=== PATIENT | male | born 1940 | race Caucasian/White ===

== ENCOUNTER 2018-07-05 08:46 | Day surgery (SDC) | payer MEDICARE, BC ==
[2018-07-03 11:52] LABS: BASOPHILS % (AUTO) 0.7 % (0-1); EOSINOPHILS # (AUTO) 0.3 X10'3 (0-0.9); EOSINOPHILS % (AUTO) 4.1 % (0-6); HEMATOCRIT 47.4 % (42.0-52.0); HEMOGLOBIN 15.5 g/dl (14.0-17.9); LYMPHOCYTES # (AUTO) 1.4 X10'3 (1.1-4.8); LYMPHOCYTES % (AUTO) 21.2 % (21-51); MEAN CORPUSCULAR HEMOGLOBIN 28.7 PG (27.0-31.0); MEAN CORPUSCULAR HGB CONC 32.8 g/dL (33.0-36.5); MEAN CORPUSCULAR VOLUME 87.4 FL (78-98); MEAN PLATELET VOLUME 7.3 FL (7.4-10.4); MONOCYTES # (AUTO) 0.7 X10'3 (0-0.9); MONOCYTES % (AUTO) 10.9 % (2-12); NEUTROPHILS % (AUTO) 63.1 % (42-75); PLATELET COUNT 215 X10'3 (140-440); RED BLOOD COUNT 5.42 X10'6 (4.70-6.10); RED CELL DISTRIBUTION WIDTH 15.9 % (11.5-14.5); WHITE BLOOD COUNT 6.4 X10'3 (4.5-11.0)
[2018-07-03 12:00] LABS: ANION GAP 8 (8-16); BLOOD UREA NITROGEN 18 MG/DL (7-18); BUN/CREATININE RATIO 16.8 (5.4-32.0); CALCIUM 8.8 MG/DL (8.5-10.1); CHLORIDE 101 MMOL/L (99-107); CREATININE 1.07 MG/DL (0.60-1.10); GLUCOSE 86 MG/DL (70-104); SODIUM 138 MMOL/L (135-145); TOTAL CARBON DIOXIDE 29.5 MMOL/L (24-32); eGFR 67 ML/MIN
[2018-07-03 12:05] LABS: PARTIAL THROMBOPLASTIN TIME 27 SECONDS (22-32); PROTHROMBIN TIME 10.3 SECONDS (9.0-12.0)
[2018-07-05] VITALS (9 sets, daily range): BP systolic 104–134; BP diastolic 70–97
[~2018-07-05] VITALS: Ht 177.8 cm; Wt 108.3 kg
[2018-07-05] MEDS ORDERED: LORazepam 0.5 MG tablet PO PRN (09:05)
[2018-07-05] MEDS ORDERED: diphenhydrAMINE 25mg capsule PO PRN (09:05)
[2018-07-05] MEDS ORDERED: normal saline 1000ml 1,000 ML IV SCH (09:05)
[2018-07-05] MEDS ORDERED: HYDR25TA4 PO (10:05)
[2018-07-05] MEDS ORDERED: ASPI81TA52 PO (10:18)
[2018-07-05] MEDS ORDERED: CARV3.12 PO (10:19)
[2018-07-05] MEDS ORDERED: verapamil 2.5 mg/ml inj IV ONE (11:47)
[2018-07-05] MEDS ORDERED: heparin 1,000unit/ml 10ml vial 10 ML ONE ×2 (11:47→12:34)
[2018-07-05] MEDS ORDERED: LIDOcaine 1% (10mg/ml)w/preservative injection 20ml MDV ONE (11:47)
[2018-07-05] MEDS ORDERED: iohexol 350MG/ML 100ml bottle IV ONE ×2 (11:48→12:38)
[2018-07-05] MEDS ORDERED: nitroGLYCERIN-Tridil 50MG/D5W 250 ML IV ONE (11:48)
[2018-07-05] MEDS ORDERED: midazolam 2 mg/2 ml injection ONE ×3 (11:51→12:34)
[2018-07-05] MEDS ORDERED: fentaNYL/PF 50MCG/1 ML 2ML syringe ONE (11:51)
[2018-07-05] MEDS ORDERED: ticagrelor 90mg tablet ONE (12:49)
[2018-07-05] MEDS ORDERED: HYDROcodone/acetaminophen 10/325mg tab PO PRN (13:30)
[2018-07-05] MEDS ORDERED: proCHLORperazine 10 MG/2 ml inj IV PRN (13:30)
[2018-07-05] MEDS ORDERED: nitroGLYCERIN 0.4mg SUBLingual tab SL PRN (13:30)
[2018-07-05] MEDS ORDERED: ondansetron/PF 4mg/2ml inj IV PRN (13:30)
[2018-07-05] MEDS ORDERED: OXAZEpam 15mg capsule PO PRN (13:30)
[2018-07-05] MEDS ORDERED: HYDROcodone/acetaminophen 5mg/325mg tablet PO PRN (13:30)
== END 2018-07-05 16:10 | disposition home or self-care (01) ==
LOC: SSTAY O 08:46
PROVIDERS: ATTEND Internal Medicine Interventional Cardiology
DX: I25.119 Atherosclerotic heart disease of native coronary artery with unspecified angina pectoris (principal); I25.82 Chronic total occlusion of coronary artery; I10 Essential (primary) hypertension; I35.0 Nonrheumatic aortic (valve) stenosis; E78.2 Mixed hyperlipidemia; Z79.82 Long term (current) use of aspirin; Z79.899 Other long term (current) drug therapy
CPT/HCPCS: 36415; 80048; 85025; 85610; 85730; 93005; 93458; 99152; 99153; A6257; C1874; C9607; J1644; J2001; J2250; J3010; J7030; Q0163; Q9967; A4620; C1725; C1769; J3490

== ENCOUNTER 2019-07-22 10:28 | Day surgery (SDC) | payer MEDICARE, BC ==
[2019-07-18 16:15] LABS: BASOPHILS # (AUTO) 0.1 X10'3 (0-0.2); BASOPHILS % (AUTO) 1.3 % (0-1); EOSINOPHILS # (AUTO) 0.4 X10'3 (0-0.9); EOSINOPHILS % (AUTO) 6.7 % (0-6); HEMATOCRIT 43.2 % (42.0-52.0); HEMOGLOBIN 14.7 g/dl (14.0-17.9); LYMPHOCYTES # (AUTO) 1.1 X10'3 (1.1-4.8); LYMPHOCYTES % (AUTO) 17.1 % (21-51); MEAN CORPUSCULAR HEMOGLOBIN 30.7 PG (27.0-31.0); MEAN CORPUSCULAR VOLUME 90.5 FL (78-98); MEAN PLATELET VOLUME 7.3 FL (7.4-10.4); MONOCYTES # (AUTO) 0.9 X10'3 (0-0.9); MONOCYTES % (AUTO) 14.4 % (2-12); NEUTROPHILS # (AUTO) 3.9 X10'3 (1.8-7.7); NEUTROPHILS % (AUTO) 60.5 % (42-75); PLATELET COUNT 219 X10'3 (140-440); RED BLOOD COUNT 4.78 X10'6 (4.70-6.10); WHITE BLOOD COUNT 6.4 X10'3 (4.5-11.0)
[2019-07-18 16:27] LABS: ALBUMIN 3.9 G/DL (3.4-5.0); ANION GAP 8 (8-16); BLOOD UREA NITROGEN 17 MG/DL (7-18); BUN/CREATININE RATIO 14.5 (5.4-32.0); CALCIUM 8.6 MG/DL (8.5-10.1); CHLORIDE 103 MMOL/L (99-107); CREATININE 1.17 MG/DL (0.60-1.10); GLUCOSE 93 MG/DL (70-104); POTASSIUM 3.8 MMOL/L (3.5-5.1); SODIUM 138 MMOL/L (135-145); TOTAL CARBON DIOXIDE 26.7 MMOL/L (24-32); eGFR 60 ML/MIN
[2019-07-18 16:28] LABS: PARTIAL THROMBOPLASTIN TIME 29 SECONDS (22-32)
[2019-07-22] VITALS (7 sets, daily range): BP systolic 116–178; BP diastolic 72–100
[~2019-07-22] VITALS: Ht 177.8 cm; Wt 102.0 kg
[~2019-07-22 10:28] MED LIST: ASPI81TA52 PO; CARV3.12 PO; HYDR25TA4 PO
[2019-07-22] MEDS ORDERED: normal saline 1,000 ML IV SCH (11:00)
[2019-07-22] MEDS ORDERED: diphenhydrAMINE 25mg capsule PO PRN (11:00)
[2019-07-22] MEDS ORDERED: LORazepam 0.5 MG tablet PO PRN (11:00)
[2019-07-22] MEDS ORDERED: LIDOcaine/PRILOcaine 5gm cream TP ONE (11:20)
[2019-07-22] MEDS ORDERED: VALA500T41 PO (11:21)
[2019-07-22] MEDS ORDERED: OMEP40CA13 PO (11:21)
[2019-07-22] MEDS ORDERED: NITR0.4T51 SL (11:21)
[2019-07-22] MEDS ORDERED: CLOP75TA35 PO (11:21)
[2019-07-22] MEDS ORDERED: ATOR20TA PO (11:21)
[2019-07-22] MEDS ORDERED: ISOS30TA6 PO (11:21)
[2019-07-22] MEDS ORDERED: LIDOcaine 1% (10mg/ml)w/preservative injection 20ml MDV ONE (14:19)
[2019-07-22] MEDS ORDERED: fentaNYL/PF 50MCG/1 ML 2ML syringe ONE (14:19)
[2019-07-22] MEDS ORDERED: heparin 1,000unit/ml 10ml vial 10 ML ONE (14:19)
[2019-07-22] MEDS ORDERED: midazolam 2 mg/2 ml injection ONE (14:19)
[2019-07-22] MEDS ORDERED: nitroGLYCERIN-Tridil 50MG/D5W 250 ML IV ONE (14:19)
[2019-07-22] MEDS ORDERED: iohexol 350MG/ML 100ml bottle IV ONE ×2 (14:19→14:52)
[2019-07-22] MEDS ORDERED: verapamil 2.5 mg/ml inj IV ONE (14:21)
[2019-07-22] MEDS ORDERED: clopidogrel 300mg tablet ONE (14:50)
[2019-07-22] MEDS ORDERED: iohexol 350 MG/ML 50ML vial IV ONE (14:53)
== END 2019-07-22 17:15 | disposition home or self-care (01) ==
LOC: SSTAY O 10:28
PROVIDERS: ATTEND Internal Medicine Interventional Cardiology
DX: R94.30 Abnormal result of cardiovascular function study, unspecified (principal); I25.10 Atherosclerotic heart disease of native coronary artery without angina pectoris; I10 Essential (primary) hypertension; E78.5 Hyperlipidemia, unspecified; I35.0 Nonrheumatic aortic (valve) stenosis; Z79.82 Long term (current) use of aspirin; Z79.899 Other long term (current) drug therapy; E66.3 Overweight; K21.9 Gastro-esophageal reflux disease without esophagitis; Z95.5 Presence of coronary angioplasty implant and graft
CPT/HCPCS: 36415; 80048; 85025; 85610; 85730; 93005; 93458; 99152; 99153; C1769; C1874; C1894; C9600; J1644; J2001; J2250; J3010; J7030; Q0163; Q9967; A4620; C1751; J3490

== ENCOUNTER 2022-08-01 11:07 | Day surgery (SDC) | payer MEDICARE, BC ==
[2022-07-28 08:54] LABS: BASOPHILS # (AUTO) 0.1 X10'3 (0-0.2); BASOPHILS % (AUTO) 1.1 % (0-1); EOSINOPHILS # (AUTO) 0.1 X10'3 (0-0.9); EOSINOPHILS % (AUTO) 2.2 % (0-6); HEMATOCRIT 44.9 % (42.0-52.0); HEMOGLOBIN 15.1 g/dl (14.0-17.9); LYMPHOCYTES # (AUTO) 1.1 X10'3 (1.1-4.8); LYMPHOCYTES % (AUTO) 17.5 % (21-51); MEAN CORPUSCULAR HEMOGLOBIN 31.7 PG (27.0-31.0); MEAN CORPUSCULAR HGB CONC 33.7 g/dL (33.0-36.5); MEAN CORPUSCULAR VOLUME 93.9 FL (78-98); MEAN PLATELET VOLUME 7.1 FL (7.4-10.4); MONOCYTES # (AUTO) 0.7 X10'3 (0-0.9); MONOCYTES % (AUTO) 10.9 % (2-12); NEUTROPHILS # (AUTO) 4.1 X10'3 (1.8-7.7); NEUTROPHILS % (AUTO) 68.3 % (42-75); PLATELET COUNT 253 X10'3 (140-440); RED BLOOD COUNT 4.78 X10'6 (4.70-6.10); RED CELL DISTRIBUTION WIDTH 14.7 % (11.5-14.5)
[2022-07-28 09:05] LABS: APTT 28 SECONDS (22-32)
[2022-07-28 09:07] LABS: ALBUMIN 4.1 G/DL (3.4-5.0); ANION GAP 7 (8-16); BLOOD UREA NITROGEN 12 MG/DL (7-18); BUN/CREATININE RATIO 11.3 (10.0-20.0); CALCIUM 8.7 MG/DL (8.5-10.1); CHLORIDE 99 MMOL/L (99-107); CHOL/HDL RATIO 3.1 (0.00-4.99); CHOLESTEROL 155 MG/DL (0-200); CREATININE 1.06 MG/DL (0.60-1.10); GLUCOSE 96 MG/DL (70-104); HDL CHOLESTEROL 50 MG/DL (35-60); LDL CHOLESTEROL 88 MG/DL (50-100); POTASSIUM 4.3 MMOL/L (3.5-5.1); SODIUM 135 MMOL/L (135-145); TOTAL CARBON DIOXIDE 29.4 MMOL/L (24-32); TRIGLYCERIDES 122 MG/DL (20-135); eGFR 67 ML/MIN
[2022-08-01] VITALS (8 sets, daily range): BP systolic 111–132; BP diastolic 77–85
[~2022-08-01] VITALS: Ht 177.8 cm; Wt 107.9 kg
[~2022-08-01 11:07] MED LIST changes: -CARV3.12 PO; +CLOP75TA34 PO; +ISOS30TA84 PO; +LINA145C PO; +LISI10TA27 PO; +NITR0.4T51 SL; +OMEP40CA21 PO; +PITA4TAB2 PO; +VALA500T41 PO
[2022-08-01] MEDS ORDERED: BEMP180T PO (11:33)
[2022-08-01] MEDS ORDERED: FLO0.4C PO (11:33)
[2022-08-01] MEDS ORDERED: areds PO (11:33)
[2022-08-01] MEDS ORDERED: nitroGLYCERIN-Tridil 50MG/D5W 250 ML IV ONE (12:10)
[2022-08-01] MEDS ORDERED: heparin 1,000unit/ml 10ml vial 10 ML ONE ×2 (12:10→14:36)
[2022-08-01] MEDS ORDERED: iohexol 350MG/ML 100ml bottle IV ONE ×2 (12:10→13:50)
[2022-08-01] MEDS ORDERED: midazolam 1 mg/ML 2ml injection ONE ×2 (12:10→13:39)
[2022-08-01] MEDS ORDERED: verapamil 2.5 mg/ml inj IV ONE (12:10)
[2022-08-01] MEDS ORDERED: fentaNYL/PF 50MCG/1 ML 2ML syringe ONE (12:10)
[2022-08-01] MEDS ORDERED: LIDOcaine 1% (10mg/ml) 2ml vial ONE (12:10)
[2022-08-01] MEDS: LORazepam 0.5 MG tablet PO PRN (12:13)
[2022-08-01] MEDS: normal saline 1,000 ML IV SCH (12:13)
[2022-08-01] MEDS: diphenhydrAMINE 25mg capsule PO PRN (12:13)
[2022-08-01] MEDS ORDERED: iohexol 350 MG/ML 50ML vial IV ONE ×3 (13:43→14:41)
[2022-08-01] MEDS ORDERED: aspirin 325mg tablet ONE (14:38)
[2022-08-01] MEDS ORDERED: clopidogrel 300mg tablet ONE (14:38)
[2022-08-01] MEDS ORDERED: HYDROcodone/acetaminophen 10/325mg tab PO PRN (15:25)
[2022-08-01] MEDS ORDERED: HYDROcodone/acetaminophen 5mg/325mg tablet PO PRN (15:25)
== END 2022-08-01 17:20 | disposition home or self-care (01) ==
LOC: SSTAY O 11:07
PROVIDERS: ATTEND Student in an Organized Health Care Education/Training Program
DX: I25.10 Atherosclerotic heart disease of native coronary artery without angina pectoris (principal); E78.5 Hyperlipidemia, unspecified; I10 Essential (primary) hypertension; I25.2 Old myocardial infarction; Z88.8 Allergy status to other drugs, medicaments and biological substances; Z79.82 Long term (current) use of aspirin; Z79.899 Other long term (current) drug therapy; Z98.890 Other specified postprocedural states
CPT/HCPCS: 36415; 80048; 80061; 85025; 85610; 85730; 93005; 93458; 99152; 99153; C1725; C1751; C1769; C1874; C1892; C1894; C9600; J1644; J2250; J3010; J3490; J7030; Q0163; Q9967; A6258; A6402; A6449

== ENCOUNTER 2023-06-12 12:34 | Outpatient (CLI) | payer MEDICARE, BC ==
[~2023-06-12 12:34] MED LIST changes: +BEMP180T PO; -CLOP75TA34 PO; +FLO0.4C PO; -OMEP40CA21 PO; -PITA4TAB2 PO; +areds PO
== END 2023-06-12 23:59 | disposition home or self-care (01) ==
LOC: RAD 12:34
PROVIDERS: ATTEND Surgery
DX: K44.9 Diaphragmatic hernia without obstruction or gangrene (principal)
CPT/HCPCS: 74220

== ENCOUNTER 2024-01-29 11:23 | Day surgery (SDC) | payer MEDICARE, BC ==
[2024-01-25 09:37] LABS: BASOPHILS # (AUTO) 0.1 X10'3 (0-0.2); BASOPHILS % (AUTO) 0.9 % (0-1); EOSINOPHILS # (AUTO) 0.2 X10'3 (0-0.9); EOSINOPHILS % (AUTO) 2.8 % (0-6); HEMATOCRIT 44.9 % (42.0-52.0); HEMOGLOBIN 15.2 g/dl (14.0-17.9); LYMPHOCYTES # (AUTO) 0.9 X10'3 (1.1-4.8); LYMPHOCYTES % (AUTO) 14.1 % (21-51); MEAN CORPUSCULAR HEMOGLOBIN 31.4 PG (27.0-31.0); MEAN CORPUSCULAR HGB CONC 33.8 g/dL (33.0-36.5); MEAN CORPUSCULAR VOLUME 92.8 FL (78-98); MEAN PLATELET VOLUME 7.9 FL (7.4-10.4); MONOCYTES # (AUTO) 0.7 X10'3 (0-0.9); NEUTROPHILS # (AUTO) 4.8 X10'3 (1.8-7.7); NEUTROPHILS % (AUTO) 71.2 % (42-75); PLATELET COUNT 217 X10'3 (140-440); RED BLOOD COUNT 4.83 X10'6 (4.70-6.10); RED CELL DISTRIBUTION WIDTH 15.9 % (11.5-14.5); WHITE BLOOD COUNT 6.7 X10'3 (4.5-11.0)
[2024-01-25 09:42] LABS: APTT 27 SECONDS (22-32); INR 1.1 INR; PROTHROMBIN TIME 11.4 SECONDS (9.0-12.0)
[2024-01-25 09:45] LABS: ALBUMIN 3.8 G/DL (3.4-5.0); ANION GAP 5 (8-16); BLOOD UREA NITROGEN 13 MG/DL (7-18); BUN/CREATININE RATIO 12.5 (10.0-20.0); CALCIUM 8.7 MG/DL (8.5-10.1); CHLORIDE 101 MMOL/L (99-107); CHOL/HDL RATIO 1.9 (0.00-4.99); CHOLESTEROL 98 MG/DL (0-200); CREATININE 1.04 MG/DL (0.60-1.10); GLUCOSE 93 MG/DL (70-104); HDL CHOLESTEROL 51 MG/DL (35-60); LDL CHOLESTEROL 37 MG/DL (50-100); POTASSIUM 4.6 MMOL/L (3.5-5.1); SODIUM 132 MMOL/L (135-145); TOTAL CARBON DIOXIDE 25.8 MMOL/L (24-32); TRIGLYCERIDES 79 MG/DL (20-135); eGFR 69 ML/MIN
[~2024-01-29] VITALS: Ht 177.8 cm; Wt 100.0 kg
[2024-01-29] VITALS (9 sets, daily range): BP systolic 104–152; BP diastolic 50–84; PULSE 55–69; RESP 12–18; TEMP 98.2; O2SAT 93–95
[2024-01-29] MEDS ORDERED: iohexol 350MG/ML 100ml bottle IV ONE (12:00)
[2024-01-29] MEDS ORDERED: DOCU100C40 PO (12:00)
[2024-01-29] MEDS ORDERED: LIDOcaine 1% (10mg/ml) 2ml vial ONE (12:00)
[2024-01-29] MEDS ORDERED: fentaNYL/PF 50MCG/1 ML 2ML syringe ONE (12:00)
[2024-01-29] MEDS ORDERED: EVOL140P3 SQ (12:00)
[2024-01-29] MEDS ORDERED: midazolam 1 mg/ML 2ml injection ONE ×2 (12:00→13:29)
[2024-01-29] MEDS ORDERED: verapamil 2.5 mg/ml inj IV ONE (12:00)
[2024-01-29] MEDS ORDERED: SPIR25TA5 PO (12:00)
[2024-01-29] MEDS ORDERED: heparin 1,000unit/ml 10ml vial 10 ML ONE (12:00)
[2024-01-29] MEDS ORDERED: CLOP75TA34 PO (12:00)
[2024-01-29] MEDS ORDERED: nitroGLYCERIN 500mcg/5mL D5W 5 ML IV ONE (12:09)
[2024-01-29] MEDS: LORazepam 0.5 MG tablet PO PRN (12:25)
[2024-01-29] MEDS: normal saline 1,000 ML IV SCH (12:25)
[2024-01-29] MEDS: diphenhydrAMINE 25mg capsule PO PRN (12:25)
[2024-01-29] MEDS ORDERED: HYDROcodone/acetaminophen 5mg/325mg tablet PO PRN (14:35)
[2024-01-29] MEDS ORDERED: HYDROcodone/acetaminophen 10/325mg tab PO PRN (14:35)
[2024-01-29 14:46] LABS: ISTAT HGB ART 12.9 g/dl (14.0-17.9); ISTAT Hct ART 38 %PCV (42-52); ISTAT O2 SATURATION ARTERIAL 94 % (95-98); ISTAT SOURCE ART
[2024-01-29 16:16] LABS: ISTAT HGB MIX 12.6 g/dl (14.0-17.9); ISTAT Hct MIX 37 %PCV (42-52); ISTAT O2 SATURATION MIX VENOUS 70 % (60-80); ISTAT SOURCE VEN
== END 2024-01-29 17:00 | disposition home or self-care (01) ==
LOC: SSTAY O 11:23
PROVIDERS: ATTEND Internal Medicine Interventional Cardiology
DX: I35.0 Nonrheumatic aortic (valve) stenosis (principal); I25.119 Atherosclerotic heart disease of native coronary artery with unspecified angina pectoris; R94.31 Abnormal electrocardiogram [ECG] [EKG]; I10 Essential (primary) hypertension; E78.00 Pure hypercholesterolemia, unspecified; Z79.82 Long term (current) use of aspirin; Z79.899 Other long term (current) drug therapy; Z88.8 Allergy status to other drugs, medicaments and biological substances
CPT/HCPCS: 36415; 80048; 80061; 82803; 85014; 85025; 85610; 85730; 93005; 93456; 99152; A6258; A6402; C1751; C1894; J1644; J2001; J2250; J3010; J3490; J7030; Q0163; Q9967; Z7610; 99153; C1769

== ENCOUNTER 2024-02-12 10:07 | Outpatient (CLI) | payer MEDICARE, BC ==
[~2024-02-12 10:07] MED LIST changes: -ASPI81TA52 PO; -BEMP180T PO; +CLOP75TA34 PO; +DOCU100C40 PO; +EVOL140P3 SQ; -HYDR25TA4 PO; +IODIXANOL 320 MG/ML INFUS..BTL 100ML IV ONE; +SPIR25TA5 PO
[2024-02-12 10:41] LABS: BASOPHILS # (AUTO) 0.1 X10'3 (0-0.2); BASOPHILS % (AUTO) 0.9 % (0-1); EOSINOPHILS # (AUTO) 0.1 X10'3 (0-0.9); EOSINOPHILS % (AUTO) 2.2 % (0-6); HEMATOCRIT 45.2 % (42.0-52.0); HEMOGLOBIN 15.1 g/dl (14.0-17.9); LYMPHOCYTES # (AUTO) 0.9 X10'3 (1.1-4.8); LYMPHOCYTES % (AUTO) 15.1 % (21-51); MEAN CORPUSCULAR HEMOGLOBIN 31.3 PG (27.0-31.0); MEAN CORPUSCULAR HGB CONC 33.4 g/dL (33.0-36.5); MEAN CORPUSCULAR VOLUME 93.7 FL (78-98); MEAN PLATELET VOLUME 7.8 FL (7.4-10.4); MONOCYTES # (AUTO) 0.6 X10'3 (0-0.9); MONOCYTES % (AUTO) 10.5 % (2-12); NEUTROPHILS % (AUTO) 71.3 % (42-75); PLATELET COUNT 214 X10'3 (140-440); RED BLOOD COUNT 4.83 X10'6 (4.70-6.10); WHITE BLOOD COUNT 5.7 X10'3 (4.5-11.0)
[2024-02-12 10:55] LABS: APTT 28 SECONDS (22-32); INR 1.1 INR; PROTHROMBIN TIME 11.3 SECONDS (9.0-12.0)
[2024-02-12 11:06] LABS: ALANINE AMINOTRANSFERASE 34 U/L (12-78); ALBUMIN 3.9 G/DL (3.4-5.0); ALBUMIN/GLOBULIN RATIO 1.3 (1.1-1.5); ALKALINE PHOSPHATASE 94 IU/L (46-116); ANION GAP 6 (8-16); ASPARTATE AMINO TRANSFERASE 26 U/L (10-37); BILIRUBIN,TOTAL 0.7 MG/DL (0.1-1.0); BLOOD UREA NITROGEN 9 MG/DL (7-18); BUN/CREATININE RATIO 9.3 (10.0-20.0); CALCIUM 8.6 MG/DL (8.5-10.1); CHLORIDE 100 MMOL/L (99-107); CREATININE 0.97 MG/DL (0.60-1.10); GLUCOSE 102 MG/DL (70-104); POTASSIUM 4.6 MMOL/L (3.5-5.1); PRO BRAIN NATRIURETIC PEPTIDE 120 PG/ML (0-450); SODIUM 132 MMOL/L (135-145); TOTAL CARBON DIOXIDE 26.4 MMOL/L (24-32); eGFR 74 ML/MIN
== END 2024-02-12 23:59 | disposition home or self-care (01) ==
LOC: RAD 10:07
PROVIDERS: ATTEND Internal Medicine Cardiovascular Disease
DX: I35.0 Nonrheumatic aortic (valve) stenosis (principal); R06.02 Shortness of breath; I65.29 Occlusion and stenosis of unspecified carotid artery; R91.1 Solitary pulmonary nodule; Z90.49 Acquired absence of other specified parts of digestive tract
CPT/HCPCS: 36415; 71046; 71275; 74174; 75572; 80053; 83880; 85025; 85610; 85730; Q9967

== ENCOUNTER 2024-08-05 11:30 | Outpatient (CLI) | payer MEDICARE, BC ==
[~2024-08-05 11:30] MED LIST changes: +ASPI-1053 PO; -CLOP75TA34 PO; -FLO0.4C PO; -IODIXANOL 320 MG/ML INFUS..BTL 100ML IV ONE; -LISI10TA27 PO; -NITR0.4T51 SL; +TAMS-55 PO; +VIT1TAB.13 PEG; -areds PO
== END 2024-08-05 23:59 | disposition home or self-care (01) ==
LOC: MRI02 11:30
PROVIDERS: ATTEND Orthopaedic Surgery
DX: M75.122 Complete rotator cuff tear or rupture of left shoulder, not specified as traumatic (principal); M75.112 Incomplete rotator cuff tear or rupture of left shoulder, not specified as traumatic; M75.42 Impingement syndrome of left shoulder; M25.512 Pain in left shoulder; M75.52 Bursitis of left shoulder; M94.212 Chondromalacia, left shoulder; M25.412 Effusion, left shoulder
CPT/HCPCS: 73221